=== PATIENT | female | born 1995 | race American Indian/Alaskan Native ===

== ENCOUNTER 2017-07-31 09:13 | Emergency (ER) | payer OTHER ==
[2017-07-31 09:55] VITALS: BP 138/83
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
== END 2017-07-31 11:05 | disposition home or self-care (01) ==
LOC: ED 09:13
DX: S00.11XA Contusion of right eyelid and periocular area, initial encounter (principal); F17.200 Nicotine dependence, unspecified, uncomplicated; W51.XXXA Accidental striking against or bumped into by another person, initial encounter; Y93.89 Activity, other specified; Y92.89 Other specified places as the place of occurrence of the external cause; Y99.8 Other external cause status
CPT/HCPCS: 99282